=== PATIENT | male | born 1965 | race Caucasian/White ===

== ENCOUNTER → 2020-05-17 | Outpatient (CLI) | payer MEDICARE, OTHER ==
[~2020-05-17] MED LIST: ALPRAZOLAM1 MG PO; ASPIRIN EC325 MG PO; CLOPIDOGREL75 MG PO; DOK100 MG PO; GABAPENTIN800 MG PO; HUMALOG100 UNIT/2 SC; LANTUS SOL100 UNIT/1 SQ; LEVOFLOXACIN750 MG PO; LEVOTHYROXINE125 MCG PO; ONDANSETRON ODT8 MG PO; OXYCODONE HCL30 MG PO; OXYMORPHONE HCL40 MG PO; PAROXETINE HCL20 MG PO; VENTOLIN HFA 66.7 GM INH
== END ==
LOC: WCC 10:00
PROC: 0JB70ZZ Excision of Back Subcutaneous Tissue and Fascia, Open Approach (ICD-10-PCS; principal; 2020-05-17)
DX: L89.312 Pressure ulcer of right buttock, stage 2 (principal); E11.622 Type 2 diabetes mellitus with other skin ulcer; E11.40 Type 2 diabetes mellitus with diabetic neuropathy, unspecified; I10 Essential (primary) hypertension; E11.65 Type 2 diabetes mellitus with hyperglycemia; F11.90 Opioid use, unspecified, uncomplicated; Z72.0 Tobacco use; Z89.611 Acquired absence of right leg above knee; Z88.8 Allergy status to other drugs, medicaments and biological substances; Z79.4 Long term (current) use of insulin; Z79.82 Long term (current) use of aspirin; Z79.899 Other long term (current) drug therapy
CPT/HCPCS: G0463

== ENCOUNTER 2020-08-19 04:05 | Inpatient (IN) | payer MEDICARE, OTHER ==
[~2020-08-19] VITALS: Ht 165.1 cm; Wt 44.9 kg
[2020-08-19 06:41] LABS: HEMOGLOBIN 13.1 gm/dl (14.0-17.5); RED BLOOD COUNT 5.46 M/UL (4.20-5.50); WHITE BLOOD COUNT 20.9 K/UL (4.5-11.0)
[2020-08-19 09:53] LABS: BORDETELLA PARAPERTUSSIS Not Detected (Not Detectd); BORDETELLA PERTUSSIS Not Detected (Not Detectd); CHLAMYDIA PNEUMONIAE Not Detected (Not Detectd); CORONAVIRUS HKU1 Not Detected (Not Detectd); CORONAVIRUS NL63 Not Detected (Not Detectd); CORONAVIRUS OC43 Not Detected (Not Detectd); CORONOAVIRUS 229E Not Detected (Not Detectd); HUMAN METAPNEUMOVIRUS Not Detected (Not Detectd); HUMAN RHINOVIRUS/ENTEROVIRUS Not Detected (Not Detectd); INFLUENZA A Not Detected (Not Detectd); INFLUENZA B Not Detected (Not Detectd); MYCOPLASMA PNEUMONIAE Not Detected (Not Detectd); PARAINFLUENZA VIRUS 1 Not Detected (Not Detectd); PARAINFLUENZA VIRUS 2 Not Detected (Not Detectd); PARAINFLUENZA VIRUS 3 Not Detected (Not Detectd); PARAINFLUENZA VIRUS 4 Not Detected (Not Detectd); RESPIRATORY SYNCYTIAL VIRUS Not Detected (Not Detectd)
[2020-08-19 11:11] LABS: BUN/CREATININE RATIO 37 (0-10)
[2020-08-19] MEDS ORDERED: VENTOLIN HFA 66.7 GM INH (12:02)
[2020-08-19] MEDS ORDERED: ALPRAZOLAM1 MG PO (12:03)
[2020-08-19] MEDS ORDERED: CLOPIDOGREL75 MG PO (12:10)
[2020-08-19] MEDS ORDERED: HUMALOG100 UNIT/2 SC (12:11)
[2020-08-19] MEDS ORDERED: GABAPENTIN800 MG PO (12:11)
[2020-08-19] MEDS ORDERED: ONDANSETRON ODT8 MG PO (12:15)
[2020-08-19] MEDS ORDERED: OXYCODONE HCL30 MG PO (12:16)
[2020-08-19] MEDS ORDERED: OXYMORPHONE HCL40 MG PO (12:18)
[2020-08-19] MEDS ORDERED: PAROXETINE HCL20 MG PO (12:19)
[2020-08-19] MEDS ORDERED: LANTUS SOL100 UNIT/1 SQ (12:22)
[2020-08-19] MEDS ORDERED: DOK100 MG PO (12:23)
[2020-08-19 12:48] LABS: SARS-CoV-2 NOT DETECTED (Not Detectd)
[2020-08-19 15:36] LABS: BUN/CREATININE RATIO 36 (0-10)
[2020-08-19] MEDS ORDERED: ASPIRIN EC325 MG PO (17:39)
[2020-08-19] MEDS ORDERED: LEVOTHYROXINE125 MCG PO (17:46)
[2020-08-19 18:42] LABS: BUN/CREATININE RATIO 34 (0-10)
[2020-08-19 22:50] LABS: BUN/CREATININE RATIO 32 (0-10)
[2020-08-20 04:52] LABS: BUN/CREATININE RATIO 29 (0-10)
[2020-08-20 07:42] LABS: BUN/CREATININE RATIO 31 (0-10)
[2020-08-20] MEDS ORDERED: LEVOFLOXACIN750 MG PO (12:14)
== END 2020-08-20 12:50 | disposition left against medical advice (07) | DRG 871 ==
LOC: CCU 04:05
PROVIDERS: Family Medicine; ADMIT Internal Medicine
DX: A41.9 Sepsis, unspecified organism (principal); L89.313 Pressure ulcer of right buttock, stage 3; E11.10 Type 2 diabetes mellitus with ketoacidosis without coma; G93.41 Metabolic encephalopathy; J96.21 Acute and chronic respiratory failure with hypoxia; J18.9 Pneumonia, unspecified organism; C34.90 Malignant neoplasm of unspecified part of unspecified bronchus or lung; E87.2 Acidosis; I50.42 Chronic combined systolic (congestive) and diastolic (congestive) heart failure; N17.9 Acute kidney failure, unspecified; N39.0 Urinary tract infection, site not specified; Z20.822 Contact with and (suspected) exposure to COVID-19; E11.9 Type 2 diabetes mellitus without complications; B19.20 Unspecified viral hepatitis C without hepatic coma; J30.9 Allergic rhinitis, unspecified; F19.10 Other psychoactive substance abuse, uncomplicated; E78.5 Hyperlipidemia, unspecified; I11.0 Hypertensive heart disease with heart failure; J44.9 Chronic obstructive pulmonary disease, unspecified; F17.210 Nicotine dependence, cigarettes, uncomplicated; E87.6 Hypokalemia; Z79.4 Long term (current) use of insulin; Z93.0 Tracheostomy status; Z95.5 Presence of coronary angioplasty implant and graft; Z89.611 Acquired absence of right leg above knee; Z86.14 Personal history of Methicillin resistant Staphylococcus aureus infection; Z88.1 Allergy status to other antibiotic agents; Z82.49 Family history of ischemic heart disease and other diseases of the circulatory system; Z80.9 Family history of malignant neoplasm, unspecified
CPT/HCPCS: 36415; 71045; 80048; 80202; 82009; 82550; 82553; 82962; 83605; 83735; 84100; 84439; 84443; 84484; 85025; 86140; 87040; 87070; 87077; 87086; 87186; 87205; 87633; 93005; 94664; 94760; A6212; C9113; J0692; J1650; J2405; J3370; J3480; J7030; J7070

== ENCOUNTER 2021-06-25 19:34 | Inpatient (IN) | payer MEDICARE, OTHER ==
[~2021-06-25] VITALS: Ht 170.2 cm; Wt 52.7 kg
[2021-06-25 19:50] LABS: HEMOGLOBIN 7.5 gm/dl (14.0-17.5); RED BLOOD COUNT 2.84 M/UL (4.20-5.50)
[2021-06-25 23:46] LABS: HEMOGLOBIN 8.1 gm/dl (14.0-17.5)
[2021-06-25 23:52] LABS: RED BLOOD COUNT 3.16 M/UL (4.20-5.50); WHITE BLOOD COUNT 21.8 K/UL (4.5-11.0)
[2021-06-26 05:22] LABS: HEMOGLOBIN 7.9 gm/dl (14.0-17.5); RED BLOOD COUNT 3.08 M/UL (4.20-5.50); WHITE BLOOD COUNT 26.2 K/UL (4.5-11.0)
[2021-06-26] MEDS ORDERED: ALPRAZOLAM1 MG PO (08:33)
[2021-06-26] MEDS ORDERED: OXYCODONE HCL30 MG PO (08:34)
[2021-06-26] MEDS ORDERED: GABAPENTIN800 MG PO (08:34)
[2021-06-26] MEDS ORDERED: OXYMORPHONE HCL40 MG PO (08:35)
[2021-06-26] MEDS ORDERED: PLAVIX 75 MG TA75 MG PO (08:51)
[2021-06-26] MEDS ORDERED: PROVENTIL HFA6.7 GM INH (08:51)
[2021-06-26] MEDS ORDERED: DULERA 200 MCG8.8 GM INH (08:51)
[2021-06-26] MEDS ORDERED: MOVANTIK25 MG PO (08:52)
[2021-06-26] MEDS ORDERED: ADMELOG SO100 UNIT/1 SQ (08:52)
[2021-06-26] MEDS ORDERED: SYNTHROID125 MCG PO (08:52)
[2021-06-26] MEDS ORDERED: PROTONIX40 MG PO (08:53)
[2021-06-26] MEDS ORDERED: PAXIL20 MG PO (08:53)
[2021-06-27 05:10] LABS: HEMOGLOBIN 7.5 gm/dl (14.0-17.5); RED BLOOD COUNT 2.98 M/UL (4.20-5.50)
[2021-06-27 05:17] LABS: WHITE BLOOD COUNT 16.9 K/UL (4.5-11.0)
[2021-06-28 07:10] LABS: RED BLOOD COUNT 2.79 M/UL (4.20-5.50)
[2021-06-28 07:13] LABS: WHITE BLOOD COUNT 24.3 K/UL (4.5-11.0)
[2021-06-28 18:06] LABS: HEMOGLOBIN 10.6 gm/dl (14.0-17.5)
[2021-06-29 05:52] LABS: HEMOGLOBIN 9.2 gm/dl (14.0-17.5); RED BLOOD COUNT 3.45 M/UL (4.20-5.50); WHITE BLOOD COUNT 14.9 K/UL (4.5-11.0)
--- NOTE | 2021-06-29 10:04 | NUR ---
PER MD REQUEST. CONSENT OBTAINED FOR BRONCHOSCOPY FROM [facility]. ENDO NOTIFIED AND SETTING UP AT BEDSIDE. VSS. WILL CONTINUE TO MONITOR.
[2021-06-30 05:17] LABS: HEMOGLOBIN 8.2 gm/dl (14.0-17.5); RED BLOOD COUNT 3.14 M/UL (4.20-5.50)
[2021-06-30 05:18] LABS: WHITE BLOOD COUNT 6.6 K/UL (4.5-11.0)
[2021-07-01 08:23] LABS: RED BLOOD COUNT 3.09 M/UL (4.20-5.50); WHITE BLOOD COUNT 5.9 K/UL (4.5-11.0)
[2021-07-02 05:02] LABS: RED BLOOD COUNT 3.11 M/UL (4.20-5.50); WHITE BLOOD COUNT 6.2 K/UL (4.5-11.0)
[2021-07-03 04:35] LABS: RED BLOOD COUNT 3.46 M/UL (4.20-5.50); WHITE BLOOD COUNT 6.4 K/UL (4.5-11.0)
[2021-07-03 05:02] LABS: BUN/CREATININE RATIO 30 (0-10)
[2021-07-04 04:14] LABS: BUN/CREATININE RATIO 37 (0-10)
[2021-07-04 04:59] LABS: HEMOGLOBIN 8.4 gm/dl (14.0-17.5); RED BLOOD COUNT 3.17 M/UL (4.20-5.50); WHITE BLOOD COUNT 6.5 K/UL (4.5-11.0)
[2021-07-05 04:48] LABS: HEMOGLOBIN 9.9 gm/dl (14.0-17.5); WHITE BLOOD COUNT 5.7 K/UL (4.5-11.0)
[2021-07-05 04:56] LABS: RED BLOOD COUNT 3.74 M/UL (4.20-5.50)
[2021-07-05 04:59] LABS: BUN/CREATININE RATIO 33 (0-10)
[2021-07-06 05:33] LABS: HEMOGLOBIN 9.9 gm/dl (14.0-17.5); RED BLOOD COUNT 3.74 M/UL (4.20-5.50); WHITE BLOOD COUNT 5.6 K/UL (4.5-11.0)
[2021-07-06 09:49] LABS: BUN/CREATININE RATIO 31 (0-10)
[2021-07-07 05:48] LABS: BUN/CREATININE RATIO 36 (0-10)
[2021-07-07 10:17] LABS: ALPRAZOLAM Negative (Cutoff=100); AMPHETAMINES, URINE Negative ng/mL (Cutoff=1000); BARBITURATE Negative ng/mL (Cutoff=200); BENZODIAZEPINES Positive ng/mL (Cutoff=100); BENZODIAZEPINES See Final Results ng/mL (Cutoff=200); CANNABINOIDS Negative ng/mL (Cutoff=20); CLONAZEPAM Negative (Cutoff=100); COCAINE (METABOLITE) Negative ng/mL (Cutoff=300); CREATININE 31.2 mg/dL (20.0-300.0); FLURAZEPAM Negative (Cutoff=100); LORAZEPAM Negative (Cutoff=100); MEPERIDINE Negative ng/mL (Cutoff=200); METHADONE Negative ng/mL (Cutoff=300); MIDAZOLAM Positive (.); MIDAZOLAM CONFIRM 5236 ng/mL (Cutoff=100); NORDIAZEPAM Negative (Cutoff=100); OPIATES Negative ng/mL (Cutoff=300); OPIATES See Final Results ng/mL (Cutoff=300); OXAZEPAM Negative (Cutoff=100); OXYCODONE Positive (.); OXYCODONE (GC/MS) 305 ng/mL (Cutoff=300); OXYCODONE/OXYMORPH Positive (Cutoff=300); OXYMORPHONE Positive (.); OXYMORPHONE (GC/MS) 13015 ng/mL (Cutoff=300); PHENCYCLIDINE Negative ng/mL (Cutoff=25); PROPOXYPHENE Negative ng/mL (Cutoff=300); TEMAZEPAM Negative (Cutoff=100); TRIAZOLAM Negative (Cutoff=100)
[2021-07-08 05:13] LABS: BUN/CREATININE RATIO 45 (0-10)
[2021-07-09 07:08] LABS: HEMOGLOBIN 9.6 gm/dl (14.0-17.5); RED BLOOD COUNT 3.61 M/UL (4.20-5.50); WHITE BLOOD COUNT 5.6 K/UL (4.5-11.0)
[2021-07-09 07:27] LABS: BUN/CREATININE RATIO 51 (0-10)
[2021-07-10 04:23] LABS: HEMOGLOBIN 8.7 gm/dl (14.0-17.5); RED BLOOD COUNT 3.31 M/UL (4.20-5.50); WHITE BLOOD COUNT 5.2 K/UL (4.5-11.0)
[2021-07-10 04:26] LABS: BUN/CREATININE RATIO 54 (0-10)
[2021-07-11 05:13] LABS: HEMOGLOBIN 8.9 gm/dl (14.0-17.5); RED BLOOD COUNT 3.36 M/UL (4.20-5.50); WHITE BLOOD COUNT 5.7 K/UL (4.5-11.0)
[2021-07-11 05:24] LABS: BUN/CREATININE RATIO 58 (0-10)
--- NOTE | 2021-07-11 05:39 | NUR ---
LATE ENTRY 07/10/212099 DR. VALDES COMPLETED NEURO CONSULT AT BEDSIDE
[2021-07-12 10:20] LABS: HEMOGLOBIN 8.9 gm/dl (14.0-17.5); RED BLOOD COUNT 3.28 M/UL (4.20-5.50)
[2021-07-12 10:40] LABS: BUN/CREATININE RATIO 62 (0-10)
--- NOTE | 2021-07-12 10:41 | NUR ---
dr. clayton informed of hyperglycemia. Orders received to give 20 units humalog now and then start patient on high dose sliding scale. CMP and CBC ordered to check to see if patient is back in DKA.
--- NOTE | 2021-07-12 17:36 | NUR ---
per dr. clayton leave glucerna running while on insulin drip
[2021-07-12 18:21] LABS: BUN/CREATININE RATIO 54 (0-10)
[2021-07-13 05:48] LABS: BUN/CREATININE RATIO 69 (0-10)
[2021-07-14 07:30] LABS: BUN/CREATININE RATIO 73 (0-10)
[2021-07-15 05:29] LABS: BUN/CREATININE RATIO 64 (0-10)
[2021-07-16 05:30] LABS: BUN/CREATININE RATIO 75 (0-10)
[2021-07-16 10:38] LABS: HEMOGLOBIN 10.2 gm/dl (14.0-17.5); RED BLOOD COUNT 3.74 M/UL (4.20-5.50); WHITE BLOOD COUNT 6.5 K/UL (4.5-11.0)
[2021-07-17 05:20] LABS: HEMOGLOBIN 10.3 gm/dl (14.0-17.5); RED BLOOD COUNT 3.77 M/UL (4.20-5.50)
[2021-07-17 05:21] LABS: WHITE BLOOD COUNT 4.7 K/UL (4.5-11.0)
[2021-07-17 07:14] LABS: BUN/CREATININE RATIO 74 (0-10)
--- NOTE | 2021-07-21 17:05 | NUR ---
1630 Summoned to patient's room per UNDER WATER ASSISTANT. Upon entering the room patient was taking last breath. No heart beat noted, no breath sounds per auscultation. Dr Clark notified that patient had passed. 1640 Patient's Emergency Contact, Darleen Quintero, sister, notified of patient's . Stated she would not be here to view the body. Telephone consent obtained to release the body to [facility]. 1655 [facility] notified of patient's . Ruled out for donation by [facility] Coordinator, Dallas Conroy, #[id number].
== END 2021-07-21 19:30 | disposition expired | DRG 870 ==
LOC: ER1 19:34 → CCU 23:00 → CDU 23:00 → CCU 06-26 01:25 → M/S 07-19 17:08
PROVIDERS: Emergency Medicine; Internal Medicine; Internal Medicine Infectious Disease; Internal Medicine Pulmonary Disease; Student in an Organized Health Care Education/Training Program; ADMIT Internal Medicine
PROC: 3E043XZ Introduction of Vasopressor into Central Vein, Percutaneous Approach (ICD-10-PCS; principal; 2021-06-25)
PROC: 3E03329 Introduction of Other Anti-infective into Peripheral Vein, Percutaneous Approach (ICD-10-PCS; 2021-06-25)
PROC: 5A1955Z Respiratory Ventilation, Greater than 96 Consecutive Hours (ICD-10-PCS; 2021-06-25)
PROC: 0BH17EZ Insertion of Endotracheal Airway into Trachea, Via Natural or Artificial Opening (ICD-10-PCS; 2021-06-25)
PROC: 5A12012 Performance of Cardiac Output, Single, Manual (ICD-10-PCS; 2021-06-25)
PROC: 0DH67UZ Insertion of Feeding Device into Stomach, Via Natural or Artificial Opening (ICD-10-PCS; 2021-06-26)
PROC: 3E0G76Z Introduction of Nutritional Substance into Upper GI, Via Natural or Artificial Opening (ICD-10-PCS; 2021-06-26)
PROC: B24BZZZ Ultrasonography of Heart with Aorta (ICD-10-PCS; 2021-06-26)
PROC: 0B9J8ZX Drainage of Left Lower Lung Lobe, Via Natural or Artificial Opening Endoscopic, Diagnostic (ICD-10-PCS; 2021-06-26)
PROC: 30233N1 Transfusion of Nonautologous Red Blood Cells into Peripheral Vein, Percutaneous Approach (ICD-10-PCS; 2021-06-28)
PROC: 4A00X4Z Measurement of Central Nervous Electrical Activity, External Approach (ICD-10-PCS; 2021-06-28)
PROC: 0B988ZZ Drainage of Left Upper Lobe Bronchus, Via Natural or Artificial Opening Endoscopic (ICD-10-PCS; 2021-06-29)
PROC: 0B918ZZ Drainage of Trachea, Via Natural or Artificial Opening Endoscopic (ICD-10-PCS; 2021-06-29)
PROC: 0B998ZZ Drainage of Lingula Bronchus, Via Natural or Artificial Opening Endoscopic (ICD-10-PCS; 2021-06-29)
PROC: 0DH63UZ Insertion of Feeding Device into Stomach, Percutaneous Approach (ICD-10-PCS; 2021-07-04)
PROC: 3E0G76Z Introduction of Nutritional Substance into Upper GI, Via Natural or Artificial Opening (ICD-10-PCS; 2021-07-04)
DX: A41.9 Sepsis, unspecified organism (principal); L89.314 Pressure ulcer of right buttock, stage 4; E11.10 Type 2 diabetes mellitus with ketoacidosis without coma; R65.21 Severe sepsis with septic shock; J69.0 Pneumonitis due to inhalation of food and vomit; J18.9 Pneumonia, unspecified organism; I21.A1 Myocardial infarction type 2; G92.8 Other toxic encephalopathy; J96.21 Acute and chronic respiratory failure with hypoxia; I46.8 Cardiac arrest due to other underlying condition; Z16.12 Extended spectrum beta lactamase (ESBL) resistance; I50.42 Chronic combined systolic (congestive) and diastolic (congestive) heart failure; G93.1 Anoxic brain damage, not elsewhere classified; D84.9 Immunodeficiency, unspecified; J44.0 Chronic obstructive pulmonary disease with (acute) lower respiratory infection; I13.0 Hypertensive heart and chronic kidney disease with heart failure and stage 1 through stage 4 chronic kidney disease, or unspecified chronic kidney disease; F11.20 Opioid dependence, uncomplicated; N17.9 Acute kidney failure, unspecified; E87.2 Acidosis; Z99.11 Dependence on respirator [ventilator] status; Z20.822 Contact with and (suspected) exposure to COVID-19; Z66 Do not resuscitate; I48.0 Paroxysmal atrial fibrillation; B19.20 Unspecified viral hepatitis C without hepatic coma; D63.8 Anemia in other chronic diseases classified elsewhere; E03.9 Hypothyroidism, unspecified; E11.51 Type 2 diabetes mellitus with diabetic peripheral angiopathy without gangrene; L89.899 Pressure ulcer of other site, unspecified stage; E11.622 Type 2 diabetes mellitus with other skin ulcer; E78.5 Hyperlipidemia, unspecified; E11.65 Type 2 diabetes mellitus with hyperglycemia; L89.159 Pressure ulcer of sacral region, unspecified stage; L89.816 Pressure-induced deep tissue damage of head; E83.42 Hypomagnesemia; E11.649 Type 2 diabetes mellitus with hypoglycemia without coma; I25.10 Atherosclerotic heart disease of native coronary artery without angina pectoris; E11.22 Type 2 diabetes mellitus with diabetic chronic kidney disease; D63.1 Anemia in chronic kidney disease; N18.30 Chronic kidney disease, stage 3 unspecified; E87.6 Hypokalemia; R53.81 Other malaise; R74.01 Elevation of levels of liver transaminase levels; T68.XXXA Hypothermia, initial encounter; F19.10 Other psychoactive substance abuse, uncomplicated; E86.0 Dehydration; Z85.89 Personal history of malignant neoplasm of other organs and systems; Z95.5 Presence of coronary angioplasty implant and graft; Z51.5 Encounter for palliative care; Z93.0 Tracheostomy status; Z89.611 Acquired absence of right leg above knee; Z89.422 Acquired absence of other left toe(s); Z87.440 Personal history of urinary (tract) infections; Z79.01 Long term (current) use of anticoagulants; Z91.14 Patient's other noncompliance with medication regimen; Z86.14 Personal history of Methicillin resistant Staphylococcus aureus infection; Z88.1 Allergy status to other antibiotic agents; Z82.49 Family history of ischemic heart disease and other diseases of the circulatory system; Z80.0 Family history of malignant neoplasm of digestive organs; Z86.73 Personal history of transient ischemic attack (TIA), and cerebral infarction without residual deficits; Z79.4 Long term (current) use of insulin
CPT/HCPCS: ECHO; 36415; 36430; 36600; 51702; 70450; 71045; 80048; 80053; 80202; 80307; 81001; 81003; 82009; 82140; 82272; 82550; 82553; 82803; 82962; 83036; 83605; 83735; 84132; 84484; 85014; 85018; 85025; 85027; 86140; 86850; 86900; 86901; 86920; 87015; 87040; 87070; 87086; 87116; 87205; 87206; 87252; 93005; 93306; 94002; 94003; 94640; 94667; 94668; 94760; 95819; 96365; 96366; 96375; 99285; A6212; C1729; C1751; C9113; G0480; J0171; J0692; J1450; J1644; J2060; J2185; J2248; J2250; J2270; J2370; J3010; J3370; J3475; J7030; J7040; J7070; P9016; U0002